=== PATIENT | male | born 1965 | race Caucasian/White ===

== ENCOUNTER → 2023-05-30 10:05 | Outpatient (BNVA) | payer MEDICARE, SELFPAY | PROVIDERS: Family Provider Family Medicine; PCP Family Medicine; Visit Provider Internal Medicine Rheumatology | DX: Z11.1 Encounter for screening for respiratory tuberculosis (principal); Z79.899 Other long term (current) drug therapy; Z11.59 Encounter for screening for other viral diseases; M19.041 Primary osteoarthritis, right hand; M19.072 Primary osteoarthritis, left ankle and foot | CPT/HCPCS: 73130; 73630; 80076; 82565; 85025; 85651; 86480; 86704; 86803; 87340; 99204 ==